=== PATIENT | male | born 1980 | race Two or more races ===

== ENCOUNTER 2021-04-03 18:35 | Emergency (ER) | payer OTHER ==
--- NOTE | 2021-04-03 19:20 | EDM.PDOC ---
ED HPI GENERAL MEDICAL PROBLEM - General Chief Complaint: Abdominal Pain Stated Complaint: RT SIDE PAIN Time Seen by Provider: 04/03/21 19:01 - History of Present Illness INITIAL COMMENTS - FREE TEXT/NARRATIVE: History of present illness: [] The patient is 4 days of intermittent severe pain behind the right lowest costal margin. It is associated with a burning type indigestion and feeling gas and burning in his esophagus. It happens intermittently for 4 days and is worse when he eats food. Its not worse with exertion. He had an episode 4 years ago and was told it might be his gallbladder but his ultrasound was negative except for fatty liver. Review of systems: As per history of present illness and below otherwise all systems reviewed and negative. Past medical history: As per history of present illness and as reviewed below otherwise noncontributory. Surgical history: As per history of present illness and as reviewed below otherwise noncontributory. Social history: No reported history of drug or alcohol abuse. Family history: As per history of present illness and as reviewed below otherwise noncontributory. Physical exam: Constitutional -BMI 44 kilogram per meter squared - well developed, well- nourished and in no acute distress HEENT - normocephalic, no evidence of trauma - external nose and mouth normal - no mass in neck and no JVD - mucosae moist EYES - full EOM, PERRL, no icterus - no evidence of inflammation, injection, or drainage Respiratory - no respiratory distress, equal bilateral expansion, lungs clear to auscultation and no abnormal lung sounds Cardiovascular - Regular Rhythm with S1 and S2 appreciated and no murmur, gallop or rub. GI -deep is percussion in the right upper quadrant pushing up under the right costal margin causes tenderness. There is no discrete obvious Dutta sign. Abdomen soft without distension or organomegaly - normal bowel sounds - no guard or rebound Musculoskeletal no gross deformity of long bones or joints - no tenderness, swelling or edema Neurologic - Alert and oriented times four - CN II-XII grossly intact - motor sensory and coordination symmetrically normal Psychiatric - appropriate mood and affect with normal thought content Hematologic - No petechiae or purpura - mucosa appropriate color and sclera not pale - normal nail bed color and refill Integument - no rash or evidence of trauma - normal turgor Diagnostics: [] Therapeutics: [] Impression: [] Plan: [] Definitive disposition and diagnosis as appropriate pending reevaluation and review of above. Right Upper Abdomen Pain Score (Numeric/FACES): 7 - Related Data Allergies Allergy/AdvReac Type Severity Reaction Status Date / Time No Known Allergies Allergy Verified 04/03/21 19:10 Home Meds: Home Meds Fenofibrate 160 mg PO DAILY 04/03/21 [History] glipiZIDE [Glucotrol XL] 10 mg PO BID 04/03/21 [History] metFORMIN [Glucophage] 850 mg PO BIDMEALS 04/03/21 [History] Social & Family History - Tobacco Use Tobacco Use Status *Q: Never Tobacco User Second Hand Smoke Exposure: No - Recreational Drug Use Recreational Drug Use: No ED ROS GENERAL - Review of Systems Review Of Systems: Comprehensive ROS is negative, except as noted in HPI. ED EXAM, GENERAL - Physical Exam Exam: See Below Free Text/Narrative:: My physical exam is in the HPI Course - Vital Signs Last Recorded V/S: Last Vital Signs Temp 36.6 C 04/03/21 19:05 Pulse 82 04/03/21 19:05 Resp 16 04/03/21 19:05 BP 152/103 H 04/03/21 19:05 Pulse Ox 97 04/03/21 19:05 - Orders/Labs/Meds Orders: Active Orders 24 hr Category Date Time Status Sodium Chloride 0.9% [Saline Flush] Med 04/03/21 19:26 Active 10 ml FLUSH ASDIRECTED PRN Sodium Chloride 0.9% [Saline Flush] Med 04/03/21 19:26 Active 2.5 ml FLUSH ASDIRECTED PRN Saline Lock Insert [OM.PC] Stat Oth 04/03/21 19:26 Ordered Medication Orders Sodium Chloride (Sodium Chloride 0.9% 10 Ml Syringe) 10 ml FLUSH ASDIRECTED PRN PRN Reason: Keep Vein Open Last Admin: 04/03/21 19:46 Dose: 10 ml Documented by: ANUSHKA Sodium Chloride (Sodium Chloride 0.9% 2.5 Ml Syringe) 2.5 ml FLUSH ASDIRECTED PRN PRN Reason: Keep Vein Open Last Admin: 04/03/21 19:46 Dose: 2.5 ml Documented by: ANUSHKA Labs: Laboratory Tests 06/25/21 06/25/21 06/25/21 Range/Units 19:15 19:21 19:21 WBC 10.31 (4.0-11.0) K/uL RBC 5.98 H (4.50-5.90) M/uL Hgb 16.0 (13.0-17.0) g/dL Hct 49.8 (38.0-50.0) % MCV 83.3 (80.0-98.0) fL MCH 26.8 L (27.0-32.0) pg MCHC 32.1 (31.0-37.0) g/dL RDW Std Deviation 43.0 (28.0-62.0) fl RDW Coeff of Ken 14 (11.0-15.0) % Plt Count 314 (150-400) K/uL MPV 11.40 (7.40-12.00) fL Neut % (Auto) 70.1 (48.0-80.0) % Lymph % (Auto) 21.4 (16.0-40.0) % [place] % (Auto) 7.4 (0.0-15.0) % Eos % (Auto) 0.9 (0.0-7.0) % Baso % (Auto) 0.2 (0.0-1.5) % Neut # (Auto) 7.2 H (1.4-5.7) K/uL Lymph # (Auto) 2.2 (0.6-2.4) K/uL [place] # (Auto) 0.8 (0.0-0.8) K/uL Eos # (Auto) 0.1 (0.0-0.7) K/uL Baso # (Auto) 0.0 (0.0-0.1) K/uL Sodium 138 (136-148) mmol/L Potassium 4.3 (3.5-5.1) mmol/L Chloride 102 (98-107) mmol/L Carbon Dioxide 31.2 (21.0-32.0) mmol/L BUN 15 (7.0-18.0) mg/dL Creatinine 0.9 (0.8-1.3) mg/dL Est Cr Clr Drug Dosing 113.88 mL/min Estimated GFR (MDRD) > 60.0 ml/min Glucose 143 H (74-106) mg/dL Calcium 9.2 (8.5-10.1) mg/dL Total Bilirubin 0.3 (0.2-1.0) mg/dL AST 18 (15-37) IU/L ALT 22 (14-63) IU/L Alkaline Phosphatase 62 (46-116) U/L Total Protein 8.0 (6.4-8.2) g/dL Albumin 3.7 (3.4-5.0) g/dL Globulin 4.3 H (2.6-4.0) g/dL Albumin/Globulin Ratio 0.9 (0.9-1.6) Lipase 58 L (73-393) U/L Urine Color YELLOW Urine Appearance CLEAR Urine pH 6.0 (5.0-8.0) Ur Specific [place] 1.025 (1.001-1.035) Urine Protein NEGATIVE (NEGATIVE) mg/dL Urine Glucose (UA) NEGATIVE (NEGATIVE) mg/dL Urine Ketones NEGATIVE (NEGATIVE) mg/dL Urine Occult Blood NEGATIVE (NEGATIVE) Urine Nitrite NEGATIVE (NEGATIVE) Urine Bilirubin NEGATIVE (NEGATIVE) Urine Urobilinogen 0.2 (<2.0) EU/dL Ur Leukocyte Esterase NEGATIVE (NEGATIVE) Meds: Medications Generic Name Dose Route Start Last Admin Trade Name Freq PRN Reason Stop Dose Admin Sodium Chloride 10 ml 04/03/21 19:26 04/03/21 19:46 Sodium Chloride 0.9% 10 Ml Syringe FLUSH 10 ml ASDIRECTED PRN Administration Keep Vein Open Sodium Chloride 2.5 ml 04/03/21 19:26 04/03/21 19:46 Sodium Chloride 0.9% 2.5 Ml Syringe FLUSH 2.5 ml ASDIRECTED PRN Administration Keep Vein Open Discontinued Medications Generic Name Dose Route Start Last Admin Trade Name Freq PRN Reason Stop Dose Admin Fentanyl 50 mcg 04/03/21 19:26 04/03/21 19:46 Fentanyl 50 Mcg/Ml Sdv IVPUSH 04/03/21 19:27 50 mcg ONETIME ONE Administration Ondansetron HCl 4 mg 04/03/21 19:26 04/03/21 19:46 Ondansetron 4 Mg/2 Ml Sdv IVPUSH 04/03/21 19:27 4 mg ONETIME ONE Administration Departure - Departure Time of Disposition: 21:01 Disposition: Home, Self-Care 01 Condition: Good Clinical Impression: Right upper quadrant pain, Rib pain - Discharge Information Instructions: Abdominal Pain, Adult, [id number] Referrals: Yecenia Stark DO [Primary Care Provider] - Forms: ED Department Discharge Additional Instructions: I did not find a dangerous cause or surgical need. A nuclear medicine gallbladder scan might be helpful even though there is no obstructing stone. Your doctor can arrange that. Try anti-inflammatory medicine, rest, and follow-up with PMD. [facility] [address], [place] [address] [facility] [address] [place] [address] The following information is given to patients seen in the emergency department who are being discharged to home. This information is to outline your options for follow-up care. We provide all patients seen in our emergency department with a follow-up referral. The need for follow-up, as well as the timing and circumstances, are variable depending upon the specifics of your emergency department visit. If you don't have a primary care physician on staff, we will provide you with a referral. We always advise you to contact your personal physician following an emergency department visit to inform them of the circumstance of the visit and for follow-up with them and/or the need for any referrals to a consulting specialist. The emergency department will also refer you to a specialist when appropriate. This referral assures that you have the opportunity for follow-up care with a specialist. All of these measure are taken in an effort to provide you with optimal care, which includes your follow-up. Under all circumstances we always encourage you to contact your private physician who remains a resource for coordinating your care. When calling for follow-up care, please make the office aware that this follow-up is from your recent emergency room visit. If for any reason you are refused follow-up, please contact the [facility] Emergency Department at and asked to speak to the emergency department charge nurse. Sepsis Event Note (ED) - Evaluation Sepsis Screening Result: No Definite Risk - Focused Exam Vital Signs: Vital Signs Temp Pulse Resp BP Pulse Ox 04/03/21 19:05 36.6 C 82 16 152/103 H 97 - My Orders Last 24 Hours: My Active Orders 04/03/21 19:26 Sodium Chloride 0.9% [Saline Flush] 10 ml FLUSH ASDIRECTED PRN Sodium Chloride 0.9% [Saline Flush] 2.5 ml FLUSH ASDIRECTED PRN Saline Lock Insert [OM.PC] Stat - Assessment/Plan Last 24 Hours: My Active Orders 04/03/21 19:26 Sodium Chloride 0.9% [Saline Flush] 10 ml FLUSH ASDIRECTED PRN Sodium Chloride 0.9% [Saline Flush] 2.5 ml FLUSH ASDIRECTED PRN Saline Lock Insert [OM.PC] Stat
[2021-04-03] MEDS ORDERED: Sodium Chloride 0.9% 2.5 ML Syringe FLUSH PRN (19:26)
[2021-04-03] MEDS ORDERED: Sodium Chloride 0.9% 10 ML Syringe FLUSH PRN (19:26)
[2021-04-03] MEDS ORDERED: fentaNYL 50 MCG/ML SDV IVPUSH ONE (19:26)
[2021-04-03] MEDS ORDERED: Ondansetron 4 MG/2 ML SDV IVPUSH ONE (19:26)
[2021-04-03 19:46] LABS: BLOOD UREA NITROGEN,BUN 15 mg/dL (7.0-18.0); CARBON DIOXIDE,CO2 31.2 mmol/L (21.0-32.0); CHLORIDE,CL 102 mmol/L (98-107); GLUCOSE RANDOM 143 mg/dL (74-106); LIPASE 58 U/L (73-393); POTASSIUM,K 4.3 mmol/L (3.5-5.1); SODIUM,NA 138 mmol/L (136-148)
--- NOTE | 2021-04-03 19:54 | CR ---
INDICATION: Right upper quadrant pain TECHNIQUE: Chest radiograph 1 view COMPARISON: None FINDINGS: Severe degradation of image quality noted due to body habitus. Mediastinum: The mediastinum is normal in appearance. The heart silhouette is normal in size and morphology. Lung: Mild pulmonary vascular congestion and minimal bibasilar atelectasis seen. No sign of pleural effusion seen. No pneumothorax is identified. Bone and Soft tissue: Unremarkable for age. IMPRESSION: 1. Mild pulmonary vascular congestion and minimal bibasilar atelectasis seen. Dictated by Robert Loja MD @ 04/03/2021 7:52:36 PM Dictated by: Robert Loja MD @ 04/03/2021 19:52:41 (Electronically Signed)
== END 2021-04-03 22:10 | disposition home or self-care (01) ==
LOC: MW.ED 18:35
DX: R07.81 Pleurodynia (principal); R10.11 Right upper quadrant pain
CPT/HCPCS: 36415; 71045; 80053; 81003; 83690; 85025; 96374; 96375; 99283; J2405; J3010

== ENCOUNTER 2021-07-16 09:03 | Day surgery (SDC) | payer OTHER ==
[~2021-07-16 09:03] MED LIST: Glycopyrrolate 0.2 MG/ML SDV ONE; Lactated Ringers 1,000 ML IV SCH; Lidocaine 2% 5 ML SDV ONE; Midazolam 1 MG/ML 2 ML SDV ONE; Propofol 200 MG/20 ML SDV ONE; Sodium Chloride 0.9% 10 ML SDV IV PRN; Sodium Chloride 0.9% 10 ML Syringe FLUSH PRN; Sodium Chloride 0.9% 2.5 ML Syringe FLUSH PRN
--- NOTE | 2021-07-16 09:43 | PCM.PREANE ---
Preanesthetic Assessment - Procedure Proposed Procedure: EGD, Colonoscopy - Anesthesia/Transfusion/Family Hx Anesthesia History: No Prior Anesthesia Family History of Anesthesia Reaction: No Transfusion History: No Prior Transfusion(s) - Review of Systems General: No Symptoms Pulmonary: No Symptoms (KENNETH does not use CPAP) Cardiovascular: No Symptoms Gastrointestinal: No Symptoms Neurological: No Symptoms Other: Reports: None - Physical Assessment NPO Status Date: 07/14/21 NPO Status Time: 21:00 (Solids, >8hr Liq) Vital Signs: Last Vital Signs Temp 96.8 F L 07/16/21 09:23 Pulse 94 07/16/21 09:23 Resp 16 07/16/21 09:23 BP 137/74 07/16/21 09:23 Pulse Ox 92 L 07/16/21 09:23 Height: 5 ft 11 in Weight: 143.335 kg (Morbid Obesity) ASA Class: 3 Mental Status: Alert & Oriented x3 Airway Class: Mallampati = 3 Dentition: Reports: Normal Dentition Thyro-Mental Finger Breadths: 3 Mouth Opening Finger Breadths: 3 ROM/Head Extension: Full Lungs: Clear to Auscultation, Normal Respiratory Effort Cardiovascular: Regular Rate, Regular Rhythm - Lab Values: Laboratory Last Values POC Glucose 194 mg/dL (70-99) H 07/16/21 09:18 - Allergies Allergies/Adverse Reactions: Allergies Allergy/AdvReac Type Severity Reaction Status Date / Time animal dander Allergy chest Verified 07/10/21 08:19 congestion latex Allergy Rash Verified 07/10/21 08:19 dust Allergy chest Uncoded 07/10/21 08:19 congestion - Acknowledgements Anesthesia Type Planned: General Anesthesia Pt an Appropriate Candidate for the Planned Anesthesia: Yes Alternatives and Risks of Anesthesia Discussed w Pt/Guardian: Yes Pt/Guardian Understands and Agrees with Anesthesia Plan: Yes PreAnesthesia Questionnaire - Past Health History Medical/Surgical History: Denies Medical/Surgical History Respiratory History: Reports: Other (See Below) Other Respiratory History: undiagnosed sleep apnea Endocrine/Metabolic History: Reports: Diabetes, Type II, Obesity/BMI 30+ - Past Surgical History Head Surgeries/Procedures: Reports: None GI Surgical History: Reports: Other (See Below) Other GI Surgeries/Procedures: states "possible hernia repair as a baby" - SUBSTANCE USE Tobacco Use Status *Q: Never Tobacco User - HOME MEDS Home Medications: Home Meds Fenofibrate 160 mg PO DAILY 04/03/21 [History] glipiZIDE [Glucotrol XL] 10 mg PO BID 04/03/21 [History] metFORMIN [Glucophage] 850 mg PO BIDMEALS 04/03/21 [History] Empagliflozin [Jardiance] 25 mg PO DAILY 07/10/21 [History] FA/Lycopene/Lut/MV,Ca,Iron,Min [Centrum] 1 tab PO DAILY 07/10/21 [History] Ginkgo Biloba [place] Extract [Ginkgo] 60 mg PO DAILY 07/10/21 [History] Olopatadine HCl 1 drop EYEBOTH ASDIRECTED PRN 07/10/21 [History] - CURRENT (IN HOUSE) MEDS Current Meds: Current Medications Lactated Ringer's (Ringers, Lactated) 1,000 mls @ 125 mls/hr IV ASDIRECTED ERNIE Last Admin: 07/16/21 09:22 Dose: 125 mls/hr Documented by: Sodium Chloride (Sodium Chloride 0.9% 10 Ml Syringe) 10 ml FLUSH ASDIRECTED PRN PRN Reason: Keep Vein Open Sodium Chloride (Sodium Chloride 0.9% 2.5 Ml Syringe) 2.5 ml FLUSH ASDIRECTED PRN PRN Reason: Keep Vein Open Sodium Chloride (Sodium Chloride 0.9% 10 Ml Syringe) 10 ml FLUSH ASDIRECTED PRN PRN Reason: Keep Vein Open Sodium Chloride (Sodium Chloride 0.9% 2.5 Ml Syringe) 2.5 ml FLUSH ASDIRECTED PRN PRN Reason: Keep Vein Open Sodium Chloride (Sodium Chloride 0.9% 10 Ml Sdv) 10 ml IV ASDIRECTED PRN PRN Reason: IV Use Discontinued Medications Glycopyrrolate (Glycopyrrolate 0.2 Mg/Ml Sdv) Confirm Administered Dose 0.2 mg .ROUTE .STK-MED ONE Stop: 07/16/21 07:11 Lidocaine (Lidocaine 2% 5 Ml Sdv) Confirm Administered Dose 5 ml .ROUTE .STK-MED ONE Stop: 07/16/21 07:11 Midazolam HCl (Midazolam 1 Mg/Ml 2 Ml Sdv) Confirm Administered Dose 2 mg .ROUTE .STK-MED ONE Stop: 07/16/21 07:11 Propofol (Propofol 200 Mg/20 Ml Sdv) Confirm Administered Dose 600 mg .ROUTE .STK-[facility] ONE Stop: 07/16/21 07:11
--- NOTE | 2021-07-16 11:34 | PCM.POSTAN ---
POST ANESTHESIA ASSESSMENT - MENTAL STATUS Mental Status: Alert, Oriented - VITAL SIGNS Vital Signs: Last Vital Signs Temp 96.8 F L 07/16/21 09:23 Pulse 94 07/16/21 09:23 Resp 16 07/16/21 09:23 BP 137/74 07/16/21 09:23 Pulse Ox 92 L 07/16/21 09:23 - RESPIRATORY Respiratory Status: Respiratory Rate WNL, Airway Patent, O2 Saturation Stable - CARDIOVASCULAR CV Status: Pulse Rate WNL, Blood Pressure Stable - GASTROINTESTINAL GI Status: No Symptoms - PAIN Pain Score: 0 - POST OP HYDRATION Hydration Status: Adequate & Stable
--- NOTE | 2021-07-16 13:57 | PCM48HPAN ---
Post Anesthesia Note - EVALUATION WITHIN 48HRS OF ANESTHETIC Vital Signs in Normal Range: Yes Patient Participated in Evaluation: Yes Respiratory Function Stable: Yes Airway Patent: Yes Cardiovascular Function Stable: Yes Hydration Status Stable: Yes Pain Control Satisfactory: Yes Nausea and Vomiting Control Satisfactory: Yes Mental Status Recovered: Yes Vital Signs: Last Vital Signs Temp 97.2 F 07/16/21 11:45 Pulse 88 07/16/21 11:45 Resp 16 07/16/21 11:45 BP 118/68 07/16/21 11:45 Pulse Ox 92 L 07/16/21 11:45 - COMMENTS/OBSERVATIONS Free Text/Narrative:: Pt doing well post-op. VSS. No apparent anesthetic complications. Dr. Jony Celis
--- NOTE | 2021-07-16 14:06 | PCM.OPNOTE ---
- General Post-Op/Procedure Note Date of Surgery/Procedure: 07/16/21 Operative Procedure(s): Diagnostic EGD and colonoscopy Findings: Hiatal hernia, normal appearing colon Pre Op Diagnosis: Upper abdominal pain, change in bowel habits Post-Op Diagnosis: Hiatal hernia, normal colonoscopy Anesthesia Technique: ROLO Primary Surgeon: Rena Riggins Condition: Good Free Text/Narrative:: Intake & Output 07/15/21 07/16/21 07/16/21 22:59 06:59 14:59 Intake Total 800 Balance 800
--- NOTE | 2021-07-17 16:20 | OR ---
SURGEON: RENA RIGGINS MD DATE OF PROCEDURE: 07/16/2021 PREOPERATIVE DIAGNOSES: Right upper quadrant abdominal pain, change in bowel habits. POSTOPERATIVE DIAGNOSES: Right upper quadrant abdominal pain, change in bowel habits. PROCEDURE PERFORMED: Diagnostic esophagogastroduodenoscopy and colonoscopy. PRIMARY SURGEON: Rena Riggins MD ANESTHESIA: MAC. INSTRUMENT USED: Olympus endoscope and colonoscope. EXTENT OF THE EXAM: To the second portion of the duodenum, to the cecum. PREPARATION: Good. LIMITATIONS: None. INDICATIONS FOR EXAMINATION: Patient is a 41-year-old male who presents to my clinic with upper abdominal pain as well as a change in his bowel habits. After discussing his symptoms, the decision was made to proceed to the operating room to perform a diagnostic EGD and colonoscopy. I explained the procedures, expected perioperative course, and the risks. He verbalized understanding and wishes to proceed. PROCEDURE IN DETAIL: The patient was brought in to the endoscopy suite and placed in a left lateral decubitus position. A time-out was completed verifying the patient's name, age, date of , allergies, and procedure to be performed. Monitored anesthesia care was induced. A bite block was placed in the patient's mouth. Continuous oxygen was provided via face mask throughout the procedure. After adequate sedation was achieved, a well-lubricated endoscope was placed in the patient's mouth and advanced under direct visualization to the second portion of duodenum. This appeared normal and a photograph was taken. The scope was then fully withdrawn while examining the color, texture, anatomy, and integrity mucosa of the upper GI tract. There was no evidence of gross inflammation or ulceration within the esophagus, stomach, or duodenum. Biopsies were taken using a cold biopsy forceps of the first portion of the duodenum; the antrum, body, and fundus of the stomach; as well as the distal esophageal mucosa. The scope was brought into the stomach and photographs were taken of the pylorus and GE junction. The patient was noted to have a very small hiatal hernia. The remainder of the exam was normal. The scope was removed and this portion of the procedure terminated. A digital rectal exam was performed. This exam was within normal limits. A well-lubricated colonoscope was inserted into the rectum and advanced under direct visualization to the level of the cecum. The cecum was identified by both visual and anatomic landmarks. A photograph was taken of the cecal cap as well as with the scope retroflexed within the cecum. The scope was then fully withdrawn while examining the color, texture, anatomy, and integrity of the mucosa from the cecum to the anal canal. The patient was found to have normal appearing colonic mucosa. Random biopsies were taken of the ascending colon, transverse colon, descending colon, sigmoid colon, and rectum and sent to Pathology for histologic review. The scope was retroflexed within the rectum to allow visualization of the anal canal opening. This appeared normal and a photograph was taken. The scope was straightened out and fully withdrawn. The cecum to anus time was 9 minutes. The patient tolerated both procedures well and was transferred to the PACU in stable condition. ENDOSCOPIC DIAGNOSES: Right upper quadrant abdominal pain, change in bowel habits. RECOMMENDATION: Follow up in clinic in two weeks. LINETTE KISER /[id number]
== END 2021-07-16 12:05 | disposition home or self-care (01) ==
LOC: MW.SDS 09:03
PROVIDERS: ATTEND Surgery
DX: R19.4 Change in bowel habit (principal); K44.9 Diaphragmatic hernia without obstruction or gangrene; K29.50 Unspecified chronic gastritis without bleeding; B96.81 Helicobacter pylori [H. pylori] as the cause of diseases classified elsewhere; K29.90 Gastroduodenitis, unspecified, without bleeding; E11.9 Type 2 diabetes mellitus without complications; G47.33 Obstructive sleep apnea (adult) (pediatric); E66.9 Obesity, unspecified; Z91.040 Latex allergy status; Z91.048 Other nonmedicinal substance allergy status; Z79.899 Other long term (current) drug therapy; Z79.84 Long term (current) use of oral hypoglycemic drugs
CPT/HCPCS: 43239; 45380; 82947; J2250; J2704; J3490; J7120; 00813; 88305; 88342